=== PATIENT | male | born 1960 | race African-American/Black ===

== ENCOUNTER 2018-03-17 09:37 | Outpatient (CLI) | payer OTHER ==
[~2018-03-17 09:37] MED LIST: HYDR-4353 PO; IBUP-1984 PO; VOLTAREN GEL TOP; ZOLP10TA5 PO
[2018-03-17 10:29] LABS: BASOPHILS % (AUTO) 0.5 % (0-1); EOSINOPHILS # (AUTO) 0.1 X10'3 (0-0.9); EOSINOPHILS % (AUTO) 2.1 % (0-6); LYMPHOCYTES # (AUTO) 2.2 X10'3 (1.1-4.8); LYMPHOCYTES % (AUTO) 39.5 % (21-51); MEAN CORPUSCULAR HGB CONC 33.1 g/dL (33.0-36.5); MEAN CORPUSCULAR VOLUME 87.8 FL (78-98); MEAN PLATELET VOLUME 8.6 FL (7.4-10.4); MONOCYTES # (AUTO) 0.5 X10'3 (0-0.9); MONOCYTES % (AUTO) 8.1 % (2-12); NEUTROPHILS # (AUTO) 2.8 X10'3 (1.8-7.7); NEUTROPHILS % (AUTO) 49.8 % (42-75); PRE OP HEMATOCRIT 44.1 % (42.0-52.0); PRE OP HEMOGLOBIN 14.6 g/dL (14.0-17.9); PRE OP PLATELET COUNT 246 X10'3 (140-440); RED BLOOD COUNT 5.02 X10'6 (4.70-6.10); RED CELL DISTRIBUTION WIDTH 13.7 % (11.5-14.5)
[2018-03-17 10:44] LABS: ALBUMIN 3.6 G/DL (3.4-5.0); ALBUMIN/GLOBULIN RATIO 0.9 (1.1-1.5); ALKALINE PHOSPHATASE 84 IU/L (46-116); BLOOD UREA NITROGEN 12 MG/DL (7-18); BUN/CREATININE RATIO 11.8 (5.4-32.0); CALCIUM 8.6 MG/DL (8.5-10.1); CHLORIDE 106 MMOL/L (99-107); CREATININE 1.02 MG/DL (0.60-1.10); PRE OP ALT 46 U/L (30-65); PRE OP ANION GAP 9 (8-16); PRE OP BILIRUB, TOTAL 0.5 MG/DL (0.0-1.0); PRE OP GLUCOSE 104 MG/DL (70-104); PRE OP SODIUM 141 MMOL/L (135-145); TOTAL CARBON DIOXIDE 25.6 MMOL/L (24-32); TOTAL PROTEIN 7.5 G/DL (6.4-8.2); eGFR > 90 ML/MIN
[2018-03-17 10:49] LABS: PRE OP AST 33 U/L (10-37)
[2018-03-17 10:57] LABS: PRE OP PROTIME 10.3 SECONDS (9.0-12.0)
== END 2018-03-17 23:59 | disposition home or self-care (01) ==
LOC: PRE-OP 09:37 → EDSTATUS 03-24 11:30
PROVIDERS: ATTEND Orthopaedic Surgery
DX: Z01.812 Encounter for preprocedural laboratory examination (principal); M75.121 Complete rotator cuff tear or rupture of right shoulder, not specified as traumatic; M19.011 Primary osteoarthritis, right shoulder; E66.01 Morbid (severe) obesity due to excess calories; Z68.37 Body mass index [BMI] 37.0-37.9, adult; F17.209 Nicotine dependence, unspecified, with unspecified nicotine-induced disorders; M25.511 Pain in right shoulder
CPT/HCPCS: 36415; 80053; 85025; 85610; 85730

== ENCOUNTER 2018-08-31 01:17 | Emergency (ER) | payer OTHER ==
[~2018-08-31] VITALS: Ht 180.3 cm; Wt 115.0 kg
[2018-08-31 01:28] VITALS: BP 146/80
== END 2018-08-31 02:50 | disposition home or self-care (01) ==
LOC: ER 01:17
DX: Z48.03 Encounter for change or removal of drains (principal); Z13.89 Encounter for screening for other disorder; Z79.899 Other long term (current) drug therapy; Z79.1 Long term (current) use of non-steroidal anti-inflammatories (NSAID); Z90.79 Acquired absence of other genital organ(s); Z97.8 Presence of other specified devices
CPT/HCPCS: 99284

== ENCOUNTER 2018-11-30 22:47 | Emergency (ER) | payer MEDICARE, MEDICAID ==
[~2018-11-30] VITALS: Ht 180.3 cm; Wt 122.2 kg
[2018-11-30] MEDS ORDERED: LIDOcaine 2% 10ml TOPICAL JELLY (Urojet) MM ONE (23:15)
--- NOTE | 2018-12-01 01:35 | NUR ---
PT WAS READY TO LEAVE AMA BUT WAS TALKED INTO STAYING BY MD. PT IS FRUSTEDRATED THAT HE IS STILL WAITING FOR UROLOGY.
--- NOTE | 2018-12-01 02:25 | NUR ---
PT AGAIN READY TO LEAVE AMA, STATED WE CAN CALL HIS CELL PHONE WHEN THE UROLOGIST SHOWS UP. CHARGE NURSE ABLE TO TALK PT INTO COMING BACK INSIDE. CHARGE NURSE TALKED WITH UROLOGIST ON THE PHONE AND TOLD HER PT STATED HE WAS ONLY STAYING UNTIL 0300. PT IN ROOM PACING AROUND AND VISIBLY UNHAPPY
[2018-12-01] MEDS ORDERED: LIDOcaine 2% 10ml TOPICAL JELLY (Urojet) MM ONE (02:35)
--- NOTE | 2018-12-01 02:42 | NUR ---
UROLOGIST AT BEDSIDE
[2018-12-01 04:24] VITALS: BP 182/95
== END 2018-12-01 05:00 | disposition home or self-care (01) ==
LOC: ER 22:48
DX: R33.9 Retention of urine, unspecified (principal); N36.8 Other specified disorders of urethra; F17.200 Nicotine dependence, unspecified, uncomplicated; Z90.89 Acquired absence of other organs; Z85.46 Personal history of malignant neoplasm of prostate
CPT/HCPCS: 53600; 99284